=== PATIENT | female | born 1970 | race Caucasian/White ===

== ENCOUNTER 2016-08-08 15:23 | Emergency (ER) | payer BC, OTHER ==
[~2016-08-08] VITALS: Ht 157.5 cm; Wt 102.1 kg
[~2016-08-08 15:23] MED LIST: AMLODIPINE PO; Acetaminophen PO; CEPH-570 PO; HYDR2TAB7 PO; LOSA100T15 PO; METOPROLOL PO; OMEP20TA68 PO
--- NOTE | 2016-08-08 16:50 | NUR ---
Female cryptologic linguist accompanied female patient for (DR BOOTH).
--- NOTE | 2016-08-08 17:19 | NUR ---
Patient discharged to home in stable conditon. Written and verbal after care instructions given. Patient verbalizes understanding of instructions.
[2016-08-08 17:20] VITALS: BP 141/66
== END 2016-08-08 17:24 | disposition home or self-care (01) ==
LOC: ER 15:47
DX: K60.0 Acute anal fissure (principal); I10 Essential (primary) hypertension; K21.9 Gastro-esophageal reflux disease without esophagitis; F10.20 Alcohol dependence, uncomplicated; Z88.6 Allergy status to analgesic agent
CPT/HCPCS: A4663

== ENCOUNTER 2016-09-17 13:10 | Day surgery (SDC) | payer BC, OTHER ==
[~2016-09-17 13:10] MED LIST changes: +IV LACTATED RINGERS SOLUTION 1,000 ML BAG IV ONE; +LIDOCAINE HCL 1% 20 ML VIAL MC ONE; +PROPOFOL 200 MG/20 ML BOTTLE IV ONE
[2016-09-17 13:34] LABS: BASOPHILS # (AUTO) 0.1 K/uL (0.0-8.0); BASOPHILS % (AUTO) 0.7 % (0.0-2.0); EOSINOPHILS # (AUTO) 0.2 K/uL (0.0-0.7); EOSINOPHILS % (AUTO) 2.4 % (0.0-7.0); HEMATOCRIT 38.3 % (37-47); HEMOGLOBIN 13.1 G/DL (12.0-16.0); LYMPHOCYTES # (AUTO) 2.9 K/UL (0.8-4.8); LYMPHOCYTES % (AUTO) 29.4 % (20.5-51.5); MEAN CORPUSCULAR HEMOGLOBIN 30.8 UUG (27.0-31.0); MEAN CORPUSCULAR HGB CONC 34 g/dL (32.0-37.0); MEAN CORPUSCULAR VOLUME 90.2 FL (81.0-99.0); MONOCYTES # (AUTO) 0.4 K/UL (0.1-1.30); MONOCYTES % (AUTO) 3.6 % (0.0-11.0); NEUTROPHILS # (AUTO) 6.4 K/UL (1.8-8.9); NEUTROPHILS % (AUTO) 63.9 % (38.5-71.5); PLATELET COUNT (AUTO) 338 K/UL (150-450); RED BLOOD CELL COUNT(AUTO) 4.24 MIL/UL (4.2-5.4); RED CELL DISTRIBUTION WIDTH 12.3 % (11.5-14.5)
[2016-09-17 13:41] LABS: *BILIRUBIN,URIN NEGATIVE (NEGATIVE); *BLOOD, URINE NEGATIVE (NEGATIVE); *CLARITY,URINE CLEAR (CLEAR); *COLOR,URINE YELLOW (YELLOW); *KETONES,URINE NEGATIVE (NEGATIVE); *PROTEIN,URINE NEGATIVE (NEGATIVE); LEUKOCYTE ESTERASE ,URINE NEGATIVE (NEGATIVE); NITRITE, URINE NEGATIVE (NEGATIVE); PH,URINE 6.5 (5.0-8.0); UGLUCOSE NEGATIVE (NEGATIVE)
[2016-09-17 13:44] LABS: BACTERIA,URINE FEW /HPF (NONE SEEN); RBC,URINE 0-3 /HPF (0-3); SQUAMOUS EPITHELIAL CELL,UR FEW /HPF (NONE SEEN); WBC,URINE 0-3 /HPF (0-3)
[2016-09-17 13:45] LABS: *URINE HCG, QUAL NEGATIVE (NEGATIVE)
[2016-09-17 13:48] LABS: ALBUMIN 3.4 g/dL (3.4-5.0); BILIRUBIN,TOTAL 0.4 mg/dL (0.2-1.0); CREATININE 0.7 mg/dL (0.6-1.3); POTASSIUM 4.3 mmol/L (3.5-5.1); TOTAL PROTEIN, SERUM 7.5 g/dL (6.4-8.2)
[2016-09-17 14:22] LABS: ANISOCYTOSIS 1+; LYMPHOCYTES % (MANUAL) 32 % (20-40); MONOCYTES % (MANUAL) 10 % (2-10); NEUTROPHILS % (MANUAL) 58 % (42-75); PLATELET ESTIMATE ADEQUATE
[2016-09-17] MEDS ORDERED: ONDANSETRON 4 MG/2 ML VIAL ONE (15:58)
== END 2016-09-17 16:15 | disposition home or self-care (01) ==
LOC: DS 13:10
PROVIDERS: ATTEND Internal Medicine Gastroenterology
DX: K29.70 Gastritis, unspecified, without bleeding (principal); K60.2 Anal fissure, unspecified; Z98.84 Bariatric surgery status; I10 Essential (primary) hypertension; E11.9 Type 2 diabetes mellitus without complications; F41.9 Anxiety disorder, unspecified; F32.9 Major depressive disorder, single episode, unspecified; K21.9 Gastro-esophageal reflux disease without esophagitis; G47.33 Obstructive sleep apnea (adult) (pediatric); G62.9 Polyneuropathy, unspecified; E66.01 Morbid (severe) obesity due to excess calories; M19.90 Unspecified osteoarthritis, unspecified site
CPT/HCPCS: 36415; 84703; 85025; 85730; A4217; A4663; J2405; J3490; J7030; J7120

== ENCOUNTER 2017-03-01 07:10 | Emergency (ER) | payer BC, OTHER ==
[~2017-03-01] VITALS: Ht 157.5 cm; Wt 90.7 kg
[~2017-03-01 07:10] MED LIST changes: -IV LACTATED RINGERS SOLUTION 1,000 ML BAG IV ONE; -LIDOCAINE HCL 1% 20 ML VIAL MC ONE; +OMEP20TA5 PO; -OMEP20TA68 PO; -PROPOFOL 200 MG/20 ML BOTTLE IV ONE
[2017-03-01] MEDS ORDERED: OXYC-133 PO (07:31)
[2017-03-01] MEDS ORDERED: GABA-534 PO (07:31)
[2017-03-01] MEDS ORDERED: GABA600T2 PO (07:31)
--- NOTE | 2017-03-01 07:42 | NUR ---
pt is in room #2a. dr Centeno evaluated the pt.
[2017-03-01] MEDS ORDERED: LIDOCAINE HCL 2% 20 ML VIAL TP ONE (07:45)
[2017-03-01] MEDS ORDERED: PROMETHAZINE HCL 25 MG/1 ML VIAL IM ONE (07:45)
[2017-03-01] MEDS ORDERED: HYDROMORPHONE 1 MG/1 ML DISP.SYRIN IM ONE (07:45)
[2017-03-01] MEDS ORDERED: LIDOCAINE HCL 2% 20 ML VIAL ONE (08:01)
[2017-03-01] MEDS ORDERED: ONDANSETRON 4 MG/2 ML VIAL ONE (08:02)
[2017-03-01] MEDS ORDERED: HYDROMORPHONE 2 MG/1 ML DISP.SYRIN ONE (08:02)
[2017-03-01] MEDS ORDERED: PROMETHAZINE HCL 25 MG/1 ML VIAL ONE (08:23)
--- NOTE | 2017-03-01 08:38 | NUR ---
pt was d/c to home. d/c instructions given to the pt.
[2017-03-01 08:39] VITALS: BP 139/85
== END 2017-03-01 08:39 | disposition home or self-care (01) ==
LOC: ER 07:16
DX: L02.212 Cutaneous abscess of back [any part, except buttock and flank] (principal); I10 Essential (primary) hypertension; Z88.6 Allergy status to analgesic agent; Z90.49 Acquired absence of other specified parts of digestive tract; K21.9 Gastro-esophageal reflux disease without esophagitis
CPT/HCPCS: 10060; 96372 ×2; 99284; A4663; J1170; J2405; J2550; J3490

== ENCOUNTER 2017-04-02 14:42 | Outpatient (CLI) | payer BC, OTHER ==
[~2017-04-02 14:42] MED LIST changes: -Acetaminophen PO; -CEPH-570 PO; +GABA-534 PO; +GABA600T2 PO; -HYDR2TAB7 PO; +OXYC-133 PO
[2017-04-02 15:35] LABS: BASOPHILS % (AUTO) 0.6 % (0.0-2.0); EOSINOPHILS # (AUTO) 0.2 K/uL (0.0-0.7); EOSINOPHILS % (AUTO) 2.7 % (0.0-7.0); HEMATOCRIT 36.3 % (37-47); HEMOGLOBIN 12.3 G/DL (12.0-16.0); LYMPHOCYTES # (AUTO) 2.3 K/UL (0.8-4.8); LYMPHOCYTES % (AUTO) 29.3 % (20.5-51.5); MEAN CORPUSCULAR HEMOGLOBIN 30.6 UUG (27.0-31.0); MEAN CORPUSCULAR HGB CONC 34 g/dL (32.0-37.0); MEAN CORPUSCULAR VOLUME 90.5 FL (81.0-99.0); MONOCYTES # (AUTO) 0.5 K/UL (0.1-1.30); MONOCYTES % (AUTO) 6.2 % (0.0-11.0); NEUTROPHILS # (AUTO) 4.8 K/UL (1.8-8.9); NEUTROPHILS % (AUTO) 61.2 % (38.5-71.5); PLATELET COUNT (AUTO) 316 K/UL (150-450); RED BLOOD CELL COUNT(AUTO) 4.01 MIL/UL (4.2-5.4); WHITE BLOOD COUNT (AUTO) 7.8 K/UL (4.0-11.2)
[2017-04-02 15:40] LABS: BILIRUBIN,TOTAL 0.4 mg/dL (0.2-1.0); CREATININE 0.9 mg/dL (0.6-1.3); POTASSIUM 4.2 mmol/L (3.5-5.1); TOTAL PROTEIN, SERUM 7.2 g/dL (6.4-8.2)
[2017-04-02 16:26] LABS: *BILIRUBIN,URIN NEGATIVE (NEGATIVE); *BLOOD, URINE NEGATIVE (NEGATIVE); *CLARITY,URINE CLEAR (CLEAR); *COLOR,URINE YELLOW (YELLOW); *KETONES,URINE NEGATIVE (NEGATIVE); *PROTEIN,URINE NEGATIVE (NEGATIVE); LEUKOCYTE ESTERASE ,URINE NEGATIVE (NEGATIVE); NITRITE, URINE NEGATIVE (NEGATIVE); UGLUCOSE NEGATIVE (NEGATIVE)
[2017-04-02 17:36] LABS: BACTERIA,URINE FEW /HPF (NONE SEEN); RBC,URINE 0-3 /HPF (0-3); SQUAMOUS EPITHELIAL CELL,UR MODERATE /HPF (NONE SEEN); WBC,URINE 0-3 /HPF (0-3)
== END 2017-04-02 23:59 | disposition home or self-care (01) ==
LOC: LAB 14:42
PROVIDERS: ATTEND Legal Medicine
DX: Z01.818 Encounter for other preprocedural examination (principal); M47.894 Other spondylosis, thoracic region
CPT/HCPCS: 36415; 71020; 85025; 85730

== ENCOUNTER 2019-05-07 07:30 | Emergency (ER) | payer BC, OTHER ==
[~2019-05-07] VITALS: Ht 157.5 cm; Wt 131.5 kg
[~2019-05-07 07:30] MED LIST changes: +AMLO10TA7 PO; +CHOL20004 PO; +CYAN10009 PO; +GABA600T12 PO; -GABA600T2 PO; -LOSA100T15 PO; +LOSA100T31 PO; +OMEP20CA15 PO
--- NOTE | 2019-05-07 07:57 | NUR ---
Patient discharged to home in stable conditon. Written and verbal after care instructions given. Patient verbalizes understanding of instructions.
== END 2019-05-07 07:58 | disposition home or self-care (01) ==
LOC: ER 07:30
DX: R60.9 Edema, unspecified (principal); I10 Essential (primary) hypertension; K21.9 Gastro-esophageal reflux disease without esophagitis; Z88.5 Allergy status to narcotic agent; Z79.899 Other long term (current) drug therapy
CPT/HCPCS: A4663

== ENCOUNTER 2019-05-28 11:30 | Day surgery (SDC) | payer BC, OTHER ==
[2019-05-28] MEDS ORDERED: PROPOFOL 200 MG/20 ML BOTTLE IV ONE (11:31)
[2019-05-28] MEDS ORDERED: LIDOCAINE-MPF 2% 5 ML VIAL MC ONE (11:31)
[2019-05-28 12:09] LABS: CREATININE 0.7 mg/dL (0.6-1.3)
[2019-05-28 12:10] LABS: BASOPHILS # (AUTO) 0.1 K/uL (0.0-8.0); BASOPHILS % (AUTO) 1.4 % (0.0-2.0); EOSINOPHILS # (AUTO) 0.3 K/uL (0.0-0.7); EOSINOPHILS % (AUTO) 3.6 % (0.0-7.0); HEMATOCRIT 37.8 % (31.2-41.9); HEMOGLOBIN 12.6 g/dL (10.9-14.3); LYMPHOCYTES # (AUTO) 2.9 K/uL (20.0-40.0); LYMPHOCYTES % (AUTO) 35.3 % (20.5-51.5); MEAN CORPUSCULAR HEMOGLOBIN 30.5 uug (24.7-32.8); MEAN CORPUSCULAR HGB CONC 33 g/dL (32.3-35.6); MEAN CORPUSCULAR VOLUME 91.5 fL (75.5-95.3); MONOCYTES # (AUTO) 0.5 K/uL (2.0-10.0); MONOCYTES % (AUTO) 6.6 % (0.0-11.0); NEUTROPHILS # (AUTO) 4.3 K/uL (1.8-8.9); NEUTROPHILS % (AUTO) 53.1 % (38.5-71.5); PLATELET COUNT (AUTO) 288 K/uL (179-408); RED BLOOD CELL COUNT(AUTO) 4.13 MIL/uL (3.63-4.92); WHITE BLOOD COUNT (AUTO) 8.1 K/uL (3.8-11.8)
[2019-05-28 12:11] LABS: *BLOOD, URINE NEGATIVE (NEGATIVE); *COLOR,URINE DARK YELLOW (YELLOW); *KETONES,URINE NEGATIVE (NEGATIVE); *UROBILINOGEN,URINE 0.2 E.U./dl (NORMAL); LEUKOCYTE ESTERASE ,URINE NEGATIVE (NEGATIVE); NITRITE, URINE NEGATIVE (NEGATIVE); PH,URINE 5.5 (5.0-8.0); UGLUCOSE NEGATIVE (NEGATIVE)
[2019-05-28 12:13] LABS: *BILIRUBIN,URIN 1+ (NEGATIVE); *CLARITY,URINE HAZY (CLEAR)
[2019-05-28 12:21] LABS: BACTERIA,URINE NONE SEEN /HPF (NONE SEEN); SQUAMOUS EPITHELIAL CELL,UR MODERATE /HPF (NONE SEEN); WBC,URINE 0-3 /HPF (0-3)
[2019-05-28 12:22] LABS: MUCUS,URINE FEW /LPF (0-FEW)
== END 2019-05-28 14:26 | disposition home or self-care (01) ==
LOC: DS 11:30
PROVIDERS: ATTEND Physical Medicine & Rehabilitation Pain Medicine
DX: M54.5 Low back pain (principal); M51.16 Intervertebral disc disorders with radiculopathy, lumbar region; I10 Essential (primary) hypertension; E66.9 Obesity, unspecified; M19.90 Unspecified osteoarthritis, unspecified site; Z79.899 Other long term (current) drug therapy; Z88.6 Allergy status to analgesic agent; Z87.440 Personal history of urinary (tract) infections; Z72.89 Other problems related to lifestyle; Z98.890 Other specified postprocedural states; Z82.49 Family history of ischemic heart disease and other diseases of the circulatory system
CPT/HCPCS: 36415; 62323; 72100; 80048; 81000; 81001; 85025; 85730; 93005; J3490

== ENCOUNTER 2019-11-16 09:48 | Outpatient (CLI) | payer BC, OTHER ==
[2019-11-16 10:40] LABS: THYROID STIMULATING HORMONE 1.209 mIU/mL (0.358-3.740)
[2019-11-16 10:49] LABS: BASOPHILS # (AUTO) 0.1 K/uL (0.0-8.0); EOSINOPHILS # (AUTO) 0.2 K/uL (0.0-0.7); HEMOGLOBIN 12.5 g/dL (10.9-14.3); LYMPHOCYTES # (AUTO) 2.9 K/uL (20.0-40.0); LYMPHOCYTES % (AUTO) 34.1 % (20.5-51.5); MEAN CORPUSCULAR HEMOGLOBIN 29.7 uug (24.7-32.8); MEAN CORPUSCULAR HGB CONC 33 g/dL (32.3-35.6); MEAN CORPUSCULAR VOLUME 90.3 fL (75.5-95.3); MONOCYTES # (AUTO) 0.6 K/uL (2.0-10.0); MONOCYTES % (AUTO) 6.9 % (0.0-11.0); NEUTROPHILS # (AUTO) 4.8 K/uL (1.8-8.9); PLATELET COUNT (AUTO) 302 K/uL (179-408); RED BLOOD CELL COUNT(AUTO) 4.21 MIL/uL (3.63-4.92); WHITE BLOOD COUNT (AUTO) 8.6 K/uL (3.8-11.8)
[2019-11-16 10:55] LABS: *BLOOD, URINE NEGATIVE (NEGATIVE); *CLARITY,URINE CLEAR (CLEAR); *COLOR,URINE YELLOW (YELLOW); *KETONES,URINE NEGATIVE (NEGATIVE); LEUKOCYTE ESTERASE ,URINE NEGATIVE (NEGATIVE); NITRITE, URINE NEGATIVE (NEGATIVE); PH,URINE 6.5 (5.0-8.0); UGLUCOSE NEGATIVE (NEGATIVE)
[2019-11-16 10:57] LABS: *BILIRUBIN,URIN 1+ (NEGATIVE)
[2019-11-16 11:43] LABS: BILIRUBIN,TOTAL 0.4 mg/dL (0.2-1.0); POTASSIUM 4.2 mmol/L (3.5-5.1); TOTAL PROTEIN, SERUM 7.6 g/dL (6.4-8.2); URIC ACID 5.7 mg/dL (2.6-6.0)
[2019-11-16 12:04] LABS: BACTERIA,URINE RARE /HPF (NONE SEEN); RBC,URINE 0-3 /HPF (0-3); SQUAMOUS EPITHELIAL CELL,UR FEW /HPF (NONE SEEN); WBC,URINE 0-3 /HPF (0-3)
[2019-11-18 08:16] LABS: *MICROALBUMIN, UR 14.7; CREATININE, URINE 238.7
== END 2019-11-16 23:59 | disposition home or self-care (01) ==
LOC: LAB 09:48
PROVIDERS: ATTEND Legal Medicine
DX: I10 Essential (primary) hypertension (principal); E11.9 Type 2 diabetes mellitus without complications; E03.9 Hypothyroidism, unspecified; D64.9 Anemia, unspecified; E55.9 Vitamin D deficiency, unspecified; E78.5 Hyperlipidemia, unspecified; R53.83 Other fatigue; Z00.00 Encounter for general adult medical examination without abnormal findings
CPT/HCPCS: 36415; 82043; 82306; 82570; 83550; 84443; 84550; 85025

== ENCOUNTER 2019-12-04 07:49 | Emergency (ER) | payer BC, OTHER ==
[~2019-12-04] VITALS: Ht 157.5 cm; Wt 131.5 kg
--- NOTE | 2019-12-04 08:23 | NUR ---
PT WAS EVALUATED BY DR EVANGELISTA. PT WAS D/C'd TO HOME. D/C INSTRUCTIONS GIVEN TO THE PT BY DR EVANGELISTA.
[2019-12-04 08:27] VITALS: BP 139/81
== END 2019-12-04 08:28 | disposition home or self-care (01) ==
LOC: ER 07:49
DX: L03.115 Cellulitis of right lower limb (principal); R60.0 Localized edema; J02.9 Acute pharyngitis, unspecified; Z20.828 Contact with and (suspected) exposure to other viral communicable diseases
CPT/HCPCS: 99283; U0003; A4663

== ENCOUNTER 2020-01-07 02:19 | Emergency (ER) | payer BC, OTHER ==
[~2020-01-07] VITALS: Ht 152.4 cm; Wt 127.0 kg
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
[2020-01-07] MEDS ORDERED: TDAP DIPH,PERTUSS,TET VAC/PF 0.5 ML DISP.SYRIN IM ONE ×2 (03:00→03:03)
--- NOTE | 2020-01-07 03:18 | NUR ---
Patient discharged to home in stable condition. Written and verbal after care instructions given. Patient verbalizes understanding of instructions. Stressed follow up or return to ER for worsening s/s.
== END 2020-01-07 03:21 | disposition home or self-care (01) ==
LOC: ER 02:24
DX: S20.319A Abrasion of unspecified front wall of thorax, initial encounter (principal); W50.4XXA Accidental scratch by another person, initial encounter; Y93.F9 Activity, other caregiving; Y92.239 Unspecified place in hospital as the place of occurrence of the external cause; Y99.0 Civilian activity done for income or pay; I10 Essential (primary) hypertension; K21.9 Gastro-esophageal reflux disease without esophagitis; Z98.84 Bariatric surgery status; Z82.49 Family history of ischemic heart disease and other diseases of the circulatory system; Z79.899 Other long term (current) drug therapy
CPT/HCPCS: 90715; A4663

== ENCOUNTER 2020-06-13 15:25 | Outpatient (CLI) | payer BC, OTHER ==
[~2020-06-13 15:25] MED LIST changes: +AMLO10TA59 PO; -AMLO10TA7 PO; -AMLODIPINE PO; -OMEP20CA15 PO
== END 2020-06-13 23:59 | disposition home or self-care (01) ==
LOC: RAD 15:25
PROVIDERS: ATTEND Legal Medicine
DX: M16.12 Unilateral primary osteoarthritis, left hip (principal)
CPT/HCPCS: 73502

== ENCOUNTER 2020-09-11 06:24 | Outpatient (CLI) | payer BC, OTHER | END 2020-09-11 23:59 | disposition home or self-care (01) | LOC: LAB 06:24 | PROVIDERS: ATTEND Surgery | DX: Z01.812 Encounter for preprocedural laboratory examination (principal); Z20.822 Contact with and (suspected) exposure to COVID-19 ==

== ENCOUNTER 2020-09-13 11:03 | Day surgery (SDC) | payer BC, OTHER ==
[2020-09-13] MEDS ORDERED: PROPOFOL 200 MG/20 ML BOTTLE IV ONE (11:04)
[2020-09-13] MEDS ORDERED: BUPIVACAINE 0.25% 30 ML VIAL ONE (11:24)
[2020-09-13] MEDS ORDERED: IOHEXOL-240 MG , 50 ML VIAL IV ONE (11:26)
[2020-09-13] MEDS ORDERED: TRIAMCINOLONE ACETONIDE 40 MG/1 ML VIAL ONE (11:28)
[2020-09-13] MEDS ORDERED: DEXAMETHASONE SOD PHOSPHATE 10 MG INJ ONE (11:37)
[2020-09-13 11:53] LABS: BASOPHILS # (AUTO) 0.1 K/uL (0.0-8.0); BASOPHILS % (AUTO) 0.8 % (0.0-2.0); EOSINOPHILS # (AUTO) 0.2 K/uL (0.0-0.7); EOSINOPHILS % (AUTO) 2.9 % (0.0-7.0); HEMOGLOBIN 11.5 g/dL (10.9-14.3); LYMPHOCYTES # (AUTO) 2.3 K/uL (20.0-40.0); LYMPHOCYTES % (AUTO) 27.8 % (20.5-51.5); MEAN CORPUSCULAR HGB CONC 34 g/dL (32.3-35.6); MEAN CORPUSCULAR VOLUME 91.6 fL (75.5-95.3); MONOCYTES # (AUTO) 0.6 K/uL (2.0-10.0); NEUTROPHILS % (AUTO) 61.5 % (38.5-71.5); PLATELET COUNT (AUTO) 273 K/uL (179-408); RED BLOOD CELL COUNT(AUTO) 3.71 MIL/uL (3.63-4.92); WHITE BLOOD COUNT (AUTO) 8.2 K/uL (3.8-11.8)
[2020-09-13 11:54] LABS: *BILIRUBIN,URIN NEGATIVE (NEGATIVE); *BLOOD, URINE NEGATIVE (NEGATIVE); *CLARITY,URINE SLIGHTLY CLOUDY (CLEAR); *COLOR,URINE YELLOW (YELLOW); *KETONES,URINE NEGATIVE (NEGATIVE); *UROBILINOGEN,URINE 0.2 E.U./dl (NORMAL); LEUKOCYTE ESTERASE ,URINE NEGATIVE (NEGATIVE); NITRITE, URINE NEGATIVE (NEGATIVE); PH,URINE 6.5 (5.0-8.0); UGLUCOSE NEGATIVE (NEGATIVE)
[2020-09-13 12:03] LABS: CREATININE 0.9 mg/dL (0.6-1.3); POTASSIUM 4.3 mmol/L (3.5-5.1)
[2020-09-13 12:42] LABS: BILIRUBIN,TOTAL 0.3 mg/dL (0.2-1.0); TOTAL PROTEIN, SERUM 7.2 g/dL (6.4-8.2); URIC ACID 5.6 mg/dL (2.6-6.0)
[2020-09-13 15:48] LABS: BACTERIA,URINE NONE SEEN /HPF (NONE SEEN); WBC,URINE 0-3 /HPF (0-3)
[2020-09-13 15:49] LABS: RBC,URINE 0-3 /HPF (0-3); SQUAMOUS EPITHELIAL CELL,UR FEW /HPF (NONE SEEN)
[2020-09-17 17:06] LABS: *VITAMIN D 25-OH VIT D 32 ng/mL (.); *VITAMIN D 25-OH, D2 <1.0 ng/mL (.); *VITAMIN D 25-OH, D3 32 ng/mL (.)
== END 2020-09-13 13:35 | disposition home or self-care (01) ==
LOC: DS 11:03
PROVIDERS: ATTEND Physical Medicine & Rehabilitation Pain Medicine
DX: M51.16 Intervertebral disc disorders with radiculopathy, lumbar region (principal); E66.01 Morbid (severe) obesity due to excess calories; I10 Essential (primary) hypertension; M19.90 Unspecified osteoarthritis, unspecified site; Z87.440 Personal history of urinary (tract) infections; Z79.899 Other long term (current) drug therapy; Z98.890 Other specified postprocedural states; Z72.89 Other problems related to lifestyle; Z88.6 Allergy status to analgesic agent
CPT/HCPCS: 62323; 72100; 80053; 81001; 82607; 82747; 83036; 83550; 84439; 84550; 85014; 85025; 85651; 85730; J3301; J7120; 36415; A4663; J1100; J3490; Q9966

== ENCOUNTER 2020-11-08 09:32 | Outpatient (CLI) | payer BC, OTHER | END 2020-11-08 23:59 | disposition home or self-care (01) | LOC: LAB 09:32 | PROVIDERS: ATTEND Physical Medicine & Rehabilitation Pain Medicine | DX: Z01.812 Encounter for preprocedural laboratory examination (principal); Z20.822 Contact with and (suspected) exposure to COVID-19 ==

== ENCOUNTER 2020-11-10 10:41 | Day surgery (SDC) | payer BC, OTHER ==
[2020-11-10] MEDS ORDERED: LIDOCAINE-MPF 2% 5 ML VIAL IJ ONE (10:42)
[2020-11-10] MEDS ORDERED: PROPOFOL 200 MG/20 ML BOTTLE IV ONE (10:42)
[2020-11-10 11:13] LABS: HEMATOCRIT 35.5 % (31.2-41.9); MEAN CORPUSCULAR HEMOGLOBIN 30.9 uug (24.7-32.8); MEAN CORPUSCULAR VOLUME 91.8 fL (75.5-95.3); PLATELET COUNT (AUTO) 334 K/uL (179-408)
[2020-11-10 11:15] LABS: *BILIRUBIN,URIN NEGATIVE (NEGATIVE); *BLOOD, URINE NEGATIVE (NEGATIVE); *CLARITY,URINE CLEAR (CLEAR); *COLOR,URINE YELLOW (YELLOW); *KETONES,URINE NEGATIVE (NEGATIVE); *UROBILINOGEN,URINE 0.2 E.U./dl (NORMAL); LEUKOCYTE ESTERASE ,URINE 1+ (NEGATIVE); NITRITE, URINE POSITIVE (NEGATIVE); PH,URINE 5.5 (5.0-8.0); UGLUCOSE NEGATIVE (NEGATIVE)
[2020-11-10 11:17] LABS: *URINE HCG, QUAL NEGATIVE (NEGATIVE)
[2020-11-10 11:18] LABS: CREATININE 0.8 mg/dL (0.6-1.3); POTASSIUM 4.4 mmol/L (3.5-5.1)
[2020-11-10] MEDS ORDERED: TRIAMCINOLONE ACETONIDE 40 MG/1 ML VIAL ONE (12:17)
[2020-11-10] MEDS ORDERED: BUPIVACAINE 0.25% 30 ML VIAL ONE (12:18)
[2020-11-10] MEDS ORDERED: IOHEXOL-240 MG , 50 ML VIAL IV ONE (12:18)
[2020-11-10 13:08] LABS: BACTERIA,URINE MODERATE /HPF (NONE SEEN); SQUAMOUS EPITHELIAL CELL,UR FEW /HPF (NONE SEEN); URINE AMORPHOUS URATE FEW /HPF; WBC,URINE 50-80 /HPF (0-3)
[2020-11-10 13:09] LABS: MUCUS,URINE FEW /LPF (0-FEW)
[2020-11-10] MEDS ORDERED: HYDROMORPHONE 1 MG/1 ML DISP.SYRIN ONE (13:37)
[2020-11-10] MEDS ORDERED: KETOROLAC TROMETHAMINE 30 MG INJ ONE (13:40)
[2020-11-10] MEDS ORDERED: HYDROCODONE/APAP 5-325MG TABLET ONE (14:15)
== END 2020-11-10 15:00 | disposition home or self-care (01) ==
LOC: DS 10:41
PROVIDERS: ATTEND Physical Medicine & Rehabilitation Pain Medicine
DX: M47.816 Spondylosis without myelopathy or radiculopathy, lumbar region (principal); M54.5 Low back pain; I70.0 Atherosclerosis of aorta; K21.9 Gastro-esophageal reflux disease without esophagitis; I10 Essential (primary) hypertension; M19.90 Unspecified osteoarthritis, unspecified site; Z79.899 Other long term (current) drug therapy; Z98.890 Other specified postprocedural states; Z88.6 Allergy status to analgesic agent; Z72.89 Other problems related to lifestyle; Z82.49 Family history of ischemic heart disease and other diseases of the circulatory system
CPT/HCPCS: 36415; 70030-TC; 71045; 84703; 85025; 85730; 87077; 87086; 93005; A4663; J1170; J1885; J3301; J3490; J7120; Q9966

== ENCOUNTER 2021-03-07 13:13 | Outpatient (CLI) | payer BC, OTHER ==
[2021-03-07 13:51] LABS: HEMATOCRIT 37.2 % (31.2-41.9); MEAN CORPUSCULAR HEMOGLOBIN 29.6 uug (24.7-32.8); MEAN CORPUSCULAR VOLUME 89.4 fL (75.5-95.3); PLATELET COUNT (AUTO) 306 K/uL (179-408)
[2021-03-07 14:22] LABS: *BILIRUBIN,URIN 1+ (NEGATIVE); *BLOOD, URINE NEGATIVE (NEGATIVE); *CLARITY,URINE SLIGHTLY CLOUDY (CLEAR); *COLOR,URINE YELLOW (YELLOW); *KETONES,URINE TRACE (NEGATIVE); LEUKOCYTE ESTERASE ,URINE NEGATIVE (NEGATIVE); NITRITE, URINE NEGATIVE (NEGATIVE); PH,URINE 5.5 (5.0-8.0); UGLUCOSE NEGATIVE (NEGATIVE)
[2021-03-07 14:52] LABS: THYROID STIMULATING HORMONE 0.873 mIU/mL (0.358-3.740)
[2021-03-07 15:17] LABS: BILIRUBIN,TOTAL 0.3 mg/dL (0.2-1.0); CREATININE 0.8 mg/dL (0.6-1.3); TOTAL PROTEIN, SERUM 7.3 g/dL (6.4-8.2); URIC ACID 4.1 mg/dL (2.6-6.0)
[2021-03-07 15:21] LABS: BACTERIA,URINE FEW /HPF (NONE SEEN); RBC,URINE 0-3 /HPF (0-3); SQUAMOUS EPITHELIAL CELL,UR MODERATE /HPF (NONE SEEN)
== END 2021-03-07 23:59 | disposition home or self-care (01) ==
LOC: LAB 13:13
PROVIDERS: ATTEND Legal Medicine
DX: I10 Essential (primary) hypertension (principal); E11.9 Type 2 diabetes mellitus without complications; E78.5 Hyperlipidemia, unspecified; D64.9 Anemia, unspecified; E55.9 Vitamin D deficiency, unspecified; Z00.00 Encounter for general adult medical examination without abnormal findings
CPT/HCPCS: 36415; 82306; 82746; 83550; 84443; 84550; 85025; 87086

== ENCOUNTER 2021-05-28 06:12 | Outpatient (CLI) | payer BC, OTHER | END 2021-05-28 23:59 | disposition home or self-care (01) | LOC: LAB 06:12 | PROVIDERS: ATTEND Physical Medicine & Rehabilitation Pain Medicine | DX: Z01.812 Encounter for preprocedural laboratory examination (principal); Z20.822 Contact with and (suspected) exposure to COVID-19 ==

== ENCOUNTER 2021-05-30 10:29 | Day surgery (SDC) | payer BC, OTHER ==
[2021-05-30 11:22] LABS: *BILIRUBIN,URIN 2+ (NEGATIVE); *BLOOD, URINE NEGATIVE (NEGATIVE); *CLARITY,URINE CLEAR (CLEAR); *COLOR,URINE YELLOW (YELLOW); *KETONES,URINE 1+ (NEGATIVE); *UROBILINOGEN,URINE 0.2 E.U./dl (NORMAL); LEUKOCYTE ESTERASE ,URINE NEGATIVE (NEGATIVE); NITRITE, URINE NEGATIVE (NEGATIVE); UGLUCOSE NEGATIVE (NEGATIVE)
[2021-05-30 11:25] LABS: HEMATOCRIT 36.5 % (31.2-41.9); MEAN CORPUSCULAR HEMOGLOBIN 30.2 uug (24.7-32.8); MEAN CORPUSCULAR VOLUME 88.5 fL (75.5-95.3); PLATELET COUNT (AUTO) 294 K/uL (179-408)
[2021-05-30] MEDS ORDERED: IOHEXOL-240 MG , 50 ML VIAL IV ONE (11:26)
[2021-05-30] MEDS ORDERED: TRIAMCINOLONE ACETONIDE 40 MG/1 ML VIAL ONE (11:26)
[2021-05-30] MEDS ORDERED: BUPIVACAINE 0.25% 30 ML VIAL ONE (11:26)
[2021-05-30 11:28] LABS: CREATININE 0.8 mg/dL (0.6-1.3); POTASSIUM 3.4 mmol/L (3.5-5.1)
[2021-05-30] MEDS ORDERED: KETOROLAC TROMETHAMINE 30 MG INJ ONE (12:47)
[2021-05-30] MEDS ORDERED: PROPOFOL 200 MG/20 ML BOTTLE ONE ×2 (13:00)
[2021-05-30] MEDS ORDERED: LIDOCAINE-MPF 2% 5 ML VIAL ONE (13:00)
[2021-05-30] MEDS ORDERED: OXYCODONE/APAP 5-325 MG TABLET ONE (13:49)
== END 2021-05-30 14:05 | disposition home or self-care (01) ==
LOC: DS 10:29
PROVIDERS: ATTEND Physical Medicine & Rehabilitation Pain Medicine
DX: M51.16 Intervertebral disc disorders with radiculopathy, lumbar region (principal); I10 Essential (primary) hypertension; K21.9 Gastro-esophageal reflux disease without esophagitis; M19.90 Unspecified osteoarthritis, unspecified site; Z79.899 Other long term (current) drug therapy; Z98.890 Other specified postprocedural states; Z72.89 Other problems related to lifestyle
CPT/HCPCS: 36415; 62323; 71045; 72020; 80048; 81003; 85025; 85730; 93005; J1885; J3301; J3490; J7120; 70030-TC; A4663; Q9966

== ENCOUNTER 2021-07-02 10:36 | Outpatient (CLI) | payer BC, OTHER | END 2021-07-02 23:59 | disposition home or self-care (01) | LOC: XRAY 10:36 | PROVIDERS: ATTEND Physical Medicine & Rehabilitation Pain Medicine | DX: M17.12 Unilateral primary osteoarthritis, left knee (principal); M25.762 Osteophyte, left knee ==

== ENCOUNTER 2021-07-25 13:57 | Outpatient (CLI) | payer BC, OTHER | END 2021-07-25 23:59 | disposition home or self-care (01) | LOC: RAD 13:57 | PROVIDERS: ATTEND Legal Medicine | DX: R06.02 Shortness of breath (principal); M47.814 Spondylosis without myelopathy or radiculopathy, thoracic region; M25.78 Osteophyte, vertebrae | CPT/HCPCS: 71046 ==

== ENCOUNTER 2021-11-16 08:52 | Outpatient (CLI) | payer BC, OTHER | END 2021-11-16 23:59 | disposition home or self-care (01) | LOC: RAD 08:52 | PROVIDERS: ATTEND Radiology Diagnostic Radiology | DX: M25.562 Pain in left knee (principal); M25.561 Pain in right knee; Z96.652 Presence of left artificial knee joint; Z96.651 Presence of right artificial knee joint ==

== ENCOUNTER 2021-11-26 15:23 | Emergency (ER) | payer BC, OTHER ==
[~2021-11-26] VITALS: Ht 157.5 cm; Wt 93.0 kg
[2021-11-26] MEDS ORDERED: ONDANSETRON 4 MG/2 ML VIAL IV ONE (17:00)
[2021-11-26] MEDS ORDERED: PANTOPRAZOLE SODIUM 40 MG VIAL IV ONE (17:00)
[2021-11-26] MEDS ORDERED: MAG HYDROX/AL HYDROX/SIMETH 30 ML LIQUID UDC PO ONE (17:00)
[2021-11-26] MEDS ORDERED: IV NORMAL SALINE 1000 ML BAG IV ONE (17:00)
[2021-11-26 17:16] LABS: HEMATOCRIT 36.1 % (31.2-41.9); MEAN CORPUSCULAR HEMOGLOBIN 29.7 uug (24.7-32.8); MEAN CORPUSCULAR VOLUME 87.6 fL (75.5-95.3); PLATELET COUNT (AUTO) 272 K/uL (179-408)
[2021-11-26 17:33] LABS: *BILIRUBIN,URIN 3+ (NEGATIVE); *BLOOD, URINE NEGATIVE (NEGATIVE); *COLOR,URINE AMBER (YELLOW); *KETONES,URINE 4+ (NEGATIVE); LEUKOCYTE ESTERASE ,URINE NEGATIVE (NEGATIVE); NITRITE, URINE NEGATIVE (NEGATIVE); UGLUCOSE NEGATIVE (NEGATIVE)
[2021-11-26 17:34] LABS: ALANINE AMINOTRANSFERASE 8 U/L (14-59); ALKALINE PHOSPHATASE 69 U/L (50-136); ASPARTATE AMINOTRANSFERASE 6 U/L (15-37); BILIRUBIN,DIRECT 0.2 mg/dL (0.0-0.2); BILIRUBIN,TOTAL 0.6 mg/dL (0.2-1.0); CARBON DIOXIDE 29 mmol/L (21-32); CHLORIDE 102 mmol/L (98-107); CREATININE 0.7 mg/dL (0.6-1.3); GLUCOSE 76 mg/dL (74-106); LIPASE 91 U/L (73-393); POTASSIUM 4.2 mmol/L (3.5-5.1); TOTAL PROTEIN, SERUM 7.2 g/dL (6.4-8.2); UREA NITROGEN, BLOOD 19 mg/dL (7-18)
[2021-11-26 17:35] LABS: *CLARITY,URINE HAZY (CLEAR)
[2021-11-26] MEDS ORDERED: MAG HYDROX/AL HYDROX/SIMETH 30 ML LIQUID UDC ONE (17:37)
[2021-11-26] MEDS ORDERED: ONDANSETRON 4 MG/2 ML VIAL ONE (17:37)
[2021-11-26] MEDS ORDERED: PANTOPRAZOLE SODIUM 40 MG VIAL ONE (17:37)
[2021-11-26 17:41] LABS: BACTERIA,URINE FEW /HPF (NONE SEEN); RBC,URINE 20-50 /HPF (0-3); SQUAMOUS EPITHELIAL CELL,UR FEW /HPF (NONE SEEN)
[2021-11-26] MEDS ORDERED: SWABABLE VALVE TRANSFER SET EA MC ONE (17:47)
[2021-11-26] MEDS ORDERED: IOHEXOL 300MG/ML 100 ML INFUS..BTL ONE (17:47)
[2021-11-26] MEDS ORDERED: IV NORMAL SALINE 250 ML IV ONE (17:47)
--- NOTE | 2021-11-26 19:00 | NUR ---
Patient is a/ox4, NAD noted
--- NOTE | 2021-11-26 19:47 | NUR ---
Patient is able to tolerate fluid and food
[2021-11-26] MEDS ORDERED: OXYC-128 PO (20:13)
[2021-11-26] MEDS ORDERED: PROC10TA29 PO (20:13)
--- NOTE | 2021-11-26 20:24 | NUR ---
Patient discharged to home in stable condition. Written and verbal after care instructions given. Patient verbalizes understanding of instructions. Stressed follow up or return to ER for worsening s/s. Patient is a/ox4, NAD noted. Patient is able to walk with steady gait
[2021-11-26 20:25] VITALS: BP 121/74
== END 2021-11-26 20:31 | disposition home or self-care (01) ==
LOC: ER 15:26
DX: R10.13 Epigastric pain (principal); R11.2 Nausea with vomiting, unspecified; R19.7 Diarrhea, unspecified; R63.0 Anorexia; Z98.84 Bariatric surgery status; Z82.49 Family history of ischemic heart disease and other diseases of the circulatory system; K21.9 Gastro-esophageal reflux disease without esophagitis; E66.9 Obesity, unspecified; Z68.37 Body mass index [BMI] 37.0-37.9, adult; M19.90 Unspecified osteoarthritis, unspecified site; Z88.5 Allergy status to narcotic agent
CPT/HCPCS: 99285; 74177; 96374; 96361; 96375; 80076; 80048; 81001; 83690; 85025; 84484; 36415; 93005; J2405; Q9967; C9113; J7040; A4663

== ENCOUNTER 2022-03-01 07:02 | Outpatient (CLI) | payer BC, OTHER ==
[~2022-03-01 07:02] MED LIST changes: +OXYC-128 PO; +PROC10TA29 PO
[2022-03-01 08:36] LABS: HEMATOCRIT 34.7 % (31.2-41.9); MEAN CORPUSCULAR HEMOGLOBIN 30.5 uug (24.7-32.8); MEAN CORPUSCULAR VOLUME 90.7 fL (75.5-95.3); PLATELET COUNT (AUTO) 289 K/uL (179-408)
[2022-03-01 08:37] LABS: *BILIRUBIN,URIN NEGATIVE (NEGATIVE); *BLOOD, URINE NEGATIVE (NEGATIVE); *CLARITY,URINE SLIGHTLY CLOUDY (CLEAR); *COLOR,URINE YELLOW (YELLOW); *KETONES,URINE TRACE (NEGATIVE); *UROBILINOGEN,URINE 0.2 E.U./dl (NORMAL); LEUKOCYTE ESTERASE ,URINE NEGATIVE (NEGATIVE); NITRITE, URINE POSITIVE (NEGATIVE); PH,URINE 5.5 (5.0-8.0); UGLUCOSE NEGATIVE (NEGATIVE)
[2022-03-01 08:51] LABS: ALANINE AMINOTRANSFERASE 18 U/L (14-59); ALKALINE PHOSPHATASE 68 U/L (50-136); ASPARTATE AMINOTRANSFERASE 10 U/L (15-37); BILIRUBIN,TOTAL 0.3 mg/dL (0.2-1.0); CARBON DIOXIDE 31 mmol/L (21-32); CHLORIDE 105 mmol/L (98-107); CREATININE 0.7 mg/dL (0.6-1.3); GLUCOSE 89 mg/dL (74-106); POTASSIUM 3.5 mmol/L (3.5-5.1); TOTAL PROTEIN, SERUM 7.3 g/dL (6.4-8.2); UREA NITROGEN, BLOOD 18 mg/dL (7-18)
[2022-03-01 08:59] LABS: THYROID STIMULATING HORMONE 1.461 mIU/mL (0.358-3.740)
[2022-03-01 09:06] LABS: IRON, SERUM 79 ug/dL (50-175)
[2022-03-01 09:29] LABS: MUCUS,URINE MANY /LPF (0-FEW)
[2022-03-01 09:30] LABS: CALCIUM OXALATE CRYSTALS,UR MANY /HPF (NONE SEEN)
[2022-03-01 09:31] LABS: BACTERIA,URINE MANY /HPF (NONE SEEN); SQUAMOUS EPITHELIAL CELL,UR FEW /HPF (NONE SEEN)
[2022-03-01 09:33] LABS: RBC,URINE 0-3 /HPF (0-3)
[2022-03-01 09:43] LABS: URIC ACID 3.8 mg/dL (2.6-6.0)
[2022-03-02 05:07] LABS: HEPATITIS B SURFACE AG Negative (Negative)
== END 2022-03-01 23:59 | disposition home or self-care (01) ==
LOC: LAB 07:02
PROVIDERS: ATTEND Legal Medicine
DX: Z00.00 Encounter for general adult medical examination without abnormal findings (principal); E11.9 Type 2 diabetes mellitus without complications; E78.00 Pure hypercholesterolemia, unspecified; R53.1 Weakness; E03.9 Hypothyroidism, unspecified; D64.9 Anemia, unspecified
CPT/HCPCS: 36415; 82746; 83550; 84443; 84550; 85025; 85651; 86038; 86140; 86706; 87077; 87086; 87340

== ENCOUNTER 2022-04-03 08:19 | Outpatient (CLI) | payer BC, OTHER | END 2022-04-03 23:59 | disposition home or self-care (01) | LOC: LAB 08:19 | PROVIDERS: ATTEND Physical Medicine & Rehabilitation Pain Medicine | DX: Z01.812 Encounter for preprocedural laboratory examination (principal); Z20.822 Contact with and (suspected) exposure to COVID-19 ==

== ENCOUNTER 2022-04-05 11:37 | Day surgery (SDC) | payer BC, OTHER ==
[~2022-04-05 11:37] MED LIST changes: +BUPIVACAINE 0.25% 30 ML VIAL ONE; +DEXAMETHASONE SOD PHOSPHATE 10 MG INJ ONE; +IOHEXOL-240 MG , 50 ML VIAL IV ONE; +TRIAMCINOLONE ACETONIDE 40 MG/1 ML VIAL ONE
[2022-04-05] MEDS ORDERED: LIDOCAINE-MPF 2% 5 ML VIAL IJ ONE (11:38)
[2022-04-05] MEDS ORDERED: PROPOFOL 200 MG/20 ML BOTTLE IV ONE (11:38)
[2022-04-05 11:49] LABS: HEMATOCRIT 33.8 % (31.2-41.9); MEAN CORPUSCULAR HEMOGLOBIN 30.5 uug (24.7-32.8); MEAN CORPUSCULAR VOLUME 89.5 fL (75.5-95.3); PLATELET COUNT (AUTO) 315 K/uL (179-408)
[2022-04-05 11:59] LABS: CREATININE 0.6 mg/dL (0.6-1.3); POTASSIUM 3.9 mmol/L (3.5-5.1)
[2022-04-05 12:12] LABS: *BILIRUBIN,URIN NEGATIVE (NEGATIVE); *BLOOD, URINE NEGATIVE (NEGATIVE); *CLARITY,URINE CLEAR (CLEAR); *COLOR,URINE YELLOW (YELLOW); *KETONES,URINE TRACE (NEGATIVE); LEUKOCYTE ESTERASE ,URINE NEGATIVE (NEGATIVE); NITRITE, URINE NEGATIVE (NEGATIVE); UGLUCOSE NEGATIVE (NEGATIVE)
[2022-04-05] MEDS ORDERED: NORMAL SALINE 10 ML VIAL ONE (12:47)
== END 2022-04-05 14:15 | disposition home or self-care (01) ==
LOC: DS 11:37
PROVIDERS: ATTEND Physical Medicine & Rehabilitation Pain Medicine
DX: M51.36 Other intervertebral disc degeneration, lumbar region (principal); I10 Essential (primary) hypertension; M19.90 Unspecified osteoarthritis, unspecified site; Z87.440 Personal history of urinary (tract) infections; Z79.899 Other long term (current) drug therapy; Z98.890 Other specified postprocedural states; Z88.6 Allergy status to analgesic agent
CPT/HCPCS: 62323; 71045; 80048; 81003; 85025; 85730; 36415; 74018; 93005; J3490 ×2; J1100; J3301; J7120; A4663; Q9966

== ENCOUNTER 2022-07-10 07:09 | Outpatient (CLI) | payer BC, OTHER ==
[~2022-07-10 07:09] MED LIST changes: -BUPIVACAINE 0.25% 30 ML VIAL ONE; -DEXAMETHASONE SOD PHOSPHATE 10 MG INJ ONE; -IOHEXOL-240 MG , 50 ML VIAL IV ONE; -TRIAMCINOLONE ACETONIDE 40 MG/1 ML VIAL ONE
== END 2022-07-10 23:59 | disposition home or self-care (01) ==
LOC: LAB 07:09
PROVIDERS: ATTEND Physical Medicine & Rehabilitation Pain Medicine
DX: Z01.812 Encounter for preprocedural laboratory examination (principal); Z20.822 Contact with and (suspected) exposure to COVID-19

== ENCOUNTER 2022-07-12 11:03 | Day surgery (SDC) | payer BC, OTHER ==
[~2022-07-12 11:03] MED LIST changes: +BUPIVACAINE 0.25% 30 ML VIAL ONE; +DEXAMETHASONE SOD PHOSPHATE 10 MG INJ ONE; +IOHEXOL-240 MG , 50 ML VIAL IV ONE; +LIDOCAINE HCL 1% 20 ML VIAL ONE; +TRIAMCINOLONE ACETONIDE 40 MG/1 ML VIAL ONE
[2022-07-12] MEDS ORDERED: PROPOFOL 200 MG/20 ML BOTTLE IV ONE (11:04)
[2022-07-12] MEDS ORDERED: LIDOCAINE-MPF 2% 5 ML VIAL IJ ONE (11:04)
[2022-07-12 11:43] LABS: HEMATOCRIT 34.9 % (31.2-41.9); MEAN CORPUSCULAR HEMOGLOBIN 30.2 uug (24.7-32.8); MEAN CORPUSCULAR VOLUME 90.8 fL (75.5-95.3); PLATELET COUNT (AUTO) 319 K/uL (179-408)
[2022-07-12 11:44] LABS: *BILIRUBIN,URIN NEGATIVE (NEGATIVE); *BLOOD, URINE NEGATIVE (NEGATIVE); *CLARITY,URINE CLEAR (CLEAR); *COLOR,URINE YELLOW (YELLOW); *KETONES,URINE NEGATIVE (NEGATIVE); LEUKOCYTE ESTERASE ,URINE NEGATIVE (NEGATIVE); NITRITE, URINE NEGATIVE (NEGATIVE); PH,URINE 7.5 (5.0-8.0); UGLUCOSE NEGATIVE (NEGATIVE)
[2022-07-12 11:54] LABS: CREATININE 0.5 mg/dL (0.6-1.3)
[2022-07-12] MEDS ORDERED: NORMAL SALINE 10 ML VIAL ONE (12:51)
[2022-07-12] MEDS ORDERED: FENTANYL CITRATE 100 MCG/2 ML AMPUL ONE (13:16)
[2022-07-12] MEDS ORDERED: OXYCODONE/APAP 5-325 MG TABLET ONE (13:44)
== END 2022-07-12 14:24 | disposition home or self-care (01) ==
LOC: DS 11:03
PROVIDERS: ATTEND Physical Medicine & Rehabilitation Pain Medicine
DX: M51.16 Intervertebral disc disorders with radiculopathy, lumbar region (principal); I10 Essential (primary) hypertension; M19.90 Unspecified osteoarthritis, unspecified site; E11.9 Type 2 diabetes mellitus without complications; Z79.899 Other long term (current) drug therapy; Z98.890 Other specified postprocedural states; Z88.6 Allergy status to analgesic agent
CPT/HCPCS: 62323; 80048; 81003; 85025; 85730; 36415; 74018; 93005; J3490 ×2; J3301; J3010; J7120; A4663; J1100; Q9966

== ENCOUNTER 2024-10-15 02:46 | Inpatient (IN) | payer BC, OTHER ==
[~2024-10-15] VITALS: Ht 157.5 cm; Wt 108.9 kg
[~2024-10-15 02:46] MED LIST changes: -BUPIVACAINE 0.25% 30 ML VIAL ONE; -DEXAMETHASONE SOD PHOSPHATE 10 MG INJ ONE; -IOHEXOL-240 MG , 50 ML VIAL IV ONE; -LIDOCAINE HCL 1% 20 ML VIAL ONE; -TRIAMCINOLONE ACETONIDE 40 MG/1 ML VIAL ONE
[2024-10-15] MEDS ORDERED: ONDANSETRON ODT 4 MG TAB.RAPDIS ONE (03:21)
[2024-10-15] MEDS ORDERED: HYDROMORPHONE 2 MG/1 ML DISP.SYRIN ONE ×2 (03:22→11:01)
[2024-10-15] MEDS: HYDROMORPHONE 1 MG/1 ML DISP.SYRIN IM ONE (03:31)
[2024-10-15] MEDS: ONDANSETRON ODT 4 MG TAB.RAPDIS SL ONE (03:31)
[2024-10-15] MEDS ORDERED: HYDROMORPHONE 1 MG/1 ML DISP.SYRIN ONE ×2 (04:31→07:17)
[2024-10-15] MEDS ORDERED: LORAZEPAM 2 MG/1 ML VIAL ONE (04:32)
[2024-10-15] MEDS: LORAZEPAM 2 MG/1 ML VIAL IV ONE (04:35)
[2024-10-15] MEDS: HYDROMORPHONE 1 MG/1 ML DISP.SYRIN IV ONE ×2 (04:35→07:53)
[2024-10-15 04:42] LABS: BASOPHILS # (AUTO) 0.1 K/UL (0.0-0.2); BASOPHILS % (AUTO) 0.8 % (0.0-2.0); EOSINOPHILS # (AUTO) 0.1 K/uL (0.0-0.7); EOSINOPHILS % (AUTO) 0.9 % (0.0-7.0); HEMATOCRIT 33.9 % (31.2-41.9); HEMOGLOBIN 11.5 g/dL (10.9-14.3); LYMPHOCYTES # (AUTO) 2.3 K/uL (0.8-4.8); LYMPHOCYTES % (AUTO) 16.6 % (20.5-51.5); MEAN CORPUSCULAR HEMOGLOBIN 29.7 uug (24.7-32.8); MEAN CORPUSCULAR HGB CONC 34 g/dL (32.3-35.6); MEAN CORPUSCULAR VOLUME 87.8 fL (75.5-95.3); MONOCYTES # (AUTO) 0.6 K/uL (0.1-1.30); MONOCYTES % (AUTO) 4.4 % (0.0-11.0); NEUTROPHILS # (AUTO) 10.8 K/uL (1.8-8.9); NEUTROPHILS % (AUTO) 77.3 % (38.5-71.5); PLATELET COUNT (AUTO) 270 K/uL (179-408); RED BLOOD CELL COUNT(AUTO) 3.87 MIL/uL (3.63-4.92); RED CELL DISTRIBUTION WIDTH 13.6 % (12.3-17.7)
[2024-10-15 04:46] LABS: DIFFERENTIAL COMMENT 1
[2024-10-15 05:13] LABS: CALCIUM 8.5 mg/dL (8.5-10.1); CREATININE 0.6 mg/dL (0.6-1.3); POTASSIUM 3.8 mmol/L (3.5-5.1)
[2024-10-15 05:18] LABS: ALBUMIN 3.5 g/dL (3.4-5.0); BILIRUBIN,DIRECT 0.2 mg/dL (0.0-0.2); BILIRUBIN,TOTAL 0.3 mg/dL (0.2-1.0)
[2024-10-15] MEDS ORDERED: KETOROLAC TROMETHAMINE 30 MG INJ ONE (07:17)
[2024-10-15] MEDS: KETOROLAC TROMETHAMINE 30 MG INJ IVP ONE (07:53)
[2024-10-15] MEDS ORDERED: AMLODIPINE 10 MG TABLET PO SCH (10:54)
[2024-10-15 11:00] VITALS: BP 125/62; TEMP 98.8; O2SAT 99
[2024-10-15] MEDS ORDERED: OXYCODONE/APAP 5-325 MG TABLET PO PRN (11:00)
[2024-10-15] MEDS ORDERED: HYDROMORPHONE 1 MG/1 ML DISP.SYRIN IV PRN (11:00)
[2024-10-15] MEDS: HYDROMORPHONE 2 MG/1 ML DISP.SYRIN IV PRN ×2 (11:02→15:12)
[2024-10-15] MEDS ORDERED: HYDR25TA86 GT (11:17)
[2024-10-15] MEDS ORDERED: ZOLP10TA2 PO (11:18)
[2024-10-15] MEDS ORDERED: BACL10TA PO (11:18)
[2024-10-15] MEDS ORDERED: ROSU10TA29 PO (11:25)
[2024-10-15] MEDS ORDERED: Medication Not On Formulary EA (Zolpidem Tartrate (Ambien) 10 MG) PO PRN (12:45)
[2024-10-15 13:57] LABS: *BILIRUBIN,URIN NEGATIVE (NEGATIVE); *BLOOD, URINE NEGATIVE (NEGATIVE); *CLARITY,URINE CLEAR (CLEAR); *COLOR,URINE YELLOW (YELLOW); *KETONES,URINE NEGATIVE (NEGATIVE); *PROTEIN,URINE NEGATIVE (NEGATIVE); *UROBILINOGEN,URINE 0.2 E.U./dl (NORMAL); LEUKOCYTE ESTERASE ,URINE NEGATIVE (NEGATIVE); NITRITE, URINE POSITIVE (NEGATIVE); UGLUCOSE NEGATIVE (NEGATIVE)
[2024-10-15 13:58] LABS: BACTERIA,URINE MODERATE /HPF (NONE SEEN); SQUAMOUS EPITHELIAL CELL,UR MODERATE /HPF (NONE SEEN); WBC,URINE 0-3 /HPF (0-3)
[2024-10-15] MEDS: CEFTRIAXONE 2 G in IV DEXTROSE 5% 100 ML IV SCH (15:54)
[2024-10-15 16:00] VITALS: O2SAT 99
[2024-10-15] MEDS ORDERED: CEFTRIAXONE 1 G in IV DEXTROSE 5% 50 ML IV SCH (16:00)
[2024-10-15] MEDS: GABAPENTIN 300 MG CAPSULE PO SCH ×2 (16:01→21:01)
[2024-10-15] MEDS: BACLOFEN 10 MG TABLET PO SCH (16:01)
[2024-10-15 16:04] VITALS: BP 109/55; TEMP 97.7; O2SAT 99
[2024-10-15] MEDS: METOPROLOL TARTRATE 50 MG TABLET PO SCH (16:49)
[2024-10-15] MEDS: hydrALAZINE HCL 25 MG TABLET GT SCH (17:53)
[2024-10-15 19:15] VITALS: BP 128/61; TEMP 99.4; O2SAT 93
[2024-10-15] MEDS ORDERED: Medication Not On Formulary EA (Gabapentin 600 MG) PO SCH (21:00)
[2024-10-15] MEDS: ATORVASTATIN 20 MG TABLET PO SCH (21:01)
[2024-10-15] MEDS: IV D5/ 0.9% NACL 1,000 ML IV PRN (21:12)
[2024-10-15] MEDS: OXYCODONE/APAP 5-325 MG TABLET PO PRN (22:11)
[2024-10-15] MEDS: ZOLPIDEM 5 MG TABLET PO PRN (23:42)
[2024-10-16 05:43] VITALS: BP 139/72; TEMP 98.5; O2SAT 96
[2024-10-16 07:10] LABS: BASOPHILS % (AUTO) 0.5 % (0.0-2.0); EOSINOPHILS # (AUTO) 0.1 K/uL (0.0-0.7); EOSINOPHILS % (AUTO) 0.9 % (0.0-7.0); HEMATOCRIT 31.6 % (31.2-41.9); HEMOGLOBIN 10.7 g/dL (10.9-14.3); LYMPHOCYTES # (AUTO) 2.6 K/uL (0.8-4.8); LYMPHOCYTES % (AUTO) 30.1 % (20.5-51.5); MEAN CORPUSCULAR HEMOGLOBIN 30.3 uug (24.7-32.8); MEAN CORPUSCULAR HGB CONC 34 g/dL (32.3-35.6); MEAN CORPUSCULAR VOLUME 89.1 fL (75.5-95.3); MONOCYTES # (AUTO) 0.9 K/uL (0.1-1.30); MONOCYTES % (AUTO) 9.8 % (0.0-11.0); NEUTROPHILS # (AUTO) 5.1 K/uL (1.8-8.9); NEUTROPHILS % (AUTO) 58.7 % (38.5-71.5); PLATELET COUNT (AUTO) 229 K/uL (179-408); RED BLOOD CELL COUNT(AUTO) 3.55 MIL/uL (3.63-4.92); RED CELL DISTRIBUTION WIDTH 13.9 % (12.3-17.7); WHITE BLOOD COUNT (AUTO) 8.7 K/uL (3.8-11.8)
[2024-10-16 07:14] LABS: DIFFERENTIAL COMMENT 1
[2024-10-16 07:18] LABS: CALCIUM 8.5 mg/dL (8.5-10.1); CREATININE 0.5 mg/dL (0.6-1.3); POTASSIUM 3.5 mmol/L (3.5-5.1)
[2024-10-16 08:30] VITALS: O2SAT 97
[2024-10-16] MEDS: HYDROMORPHONE 2 MG/1 ML DISP.SYRIN IV ONE (08:57)
[2024-10-16] MEDS ORDERED: AMLODIPINE 10 MG TABLET PO SCH (09:00)
[2024-10-16] MEDS ORDERED: Medication Not On Formulary EA (Cholecalciferol (Vitamin D3) (Vitamin D CAPSULE) 2,000 U PO SCH (09:00)
[2024-10-16] MEDS ORDERED: CYANOCOBALAMIN 1,000 MCG TABLET PO SCH (09:00)
[2024-10-16] MEDS ORDERED: Medication Not On Formulary EA (Omeprazole 20 MG) PO SCH (09:00)
[2024-10-16] MEDS ORDERED: Medication Not On Formulary EA (Losartan Potassium 100 MG) PO SCH (09:00)
[2024-10-16 10:53] VITALS: BP 121/58; TEMP 99; O2SAT 94
[2024-10-16] MEDS ORDERED: VANCOMYCIN 1000 MG VIAL ONE (10:57)
[2024-10-16] MEDS ORDERED: PROPOFOL 200 MG/20 ML BOTTLE ONE (11:00)
[2024-10-16] MEDS ORDERED: FENTANYL CITRATE 100 MCG/2 ML AMPUL ONE (11:05)
[2024-10-16] MEDS ORDERED: MIDAZOLAM HCL 2 MG/2 ML VIAL ONE (11:05)
[2024-10-16] MEDS ORDERED: SUCCINYLCHOLINE CHLORIDE 200 MG/10 ML VIAL ONE (11:23)
[2024-10-16] MEDS ORDERED: HYDROMORPHONE 2 MG/1 ML DISP.SYRIN ONE (12:27)
[2024-10-16 16:17] VITALS: BP 135/63; TEMP 98.5; O2SAT 97
[2024-10-16] MEDS: POTASSIUM CHLORIDE 20 MEQ in IV D5 1/2 NS 1000 ML 1,000 ML IV PRN (17:10)
[2024-10-16] MEDS: ACETAMINOPHEN 325 MG TABLET PO PRN (19:09)
[2024-10-16 19:15] VITALS: BP 119/62; TEMP 99.3; O2SAT 93
[2024-10-17 04:58] VITALS: BP 147/70; TEMP 99.4; O2SAT 92
[2024-10-17 07:19] LABS: BASOPHILS % (AUTO) 0.5 % (0.0-2.0); EOSINOPHILS # (AUTO) 0.1 K/uL (0.0-0.7); EOSINOPHILS % (AUTO) 1.1 % (0.0-7.0); HEMATOCRIT 29.8 % (31.2-41.9); HEMOGLOBIN 10.1 g/dL (10.9-14.3); LYMPHOCYTES # (AUTO) 2.2 K/uL (0.8-4.8); LYMPHOCYTES % (AUTO) 25.3 % (20.5-51.5); MEAN CORPUSCULAR HEMOGLOBIN 30.2 uug (24.7-32.8); MEAN CORPUSCULAR HGB CONC 34 g/dL (32.3-35.6); MEAN CORPUSCULAR VOLUME 88.7 fL (75.5-95.3); MONOCYTES # (AUTO) 0.8 K/uL (0.1-1.30); NEUTROPHILS # (AUTO) 5.6 K/uL (1.8-8.9); NEUTROPHILS % (AUTO) 64.1 % (38.5-71.5); PLATELET COUNT (AUTO) 214 K/uL (179-408); RED BLOOD CELL COUNT(AUTO) 3.35 MIL/uL (3.63-4.92); RED CELL DISTRIBUTION WIDTH 13.8 % (12.3-17.7); WHITE BLOOD COUNT (AUTO) 8.7 K/uL (3.8-11.8)
[2024-10-17 07:27] LABS: CALCIUM 8.4 mg/dL (8.5-10.1); CREATININE 0.5 mg/dL (0.6-1.3); POTASSIUM 3.6 mmol/L (3.5-5.1)
[2024-10-17 07:36] LABS: DIFFERENTIAL COMMENT 1
[2024-10-17 08:00] VITALS: TEMP 102.8
[2024-10-17 09:00] VITALS: TEMP 101.3
[2024-10-17] MEDS: HYDROMORPHONE 2 MG/1 ML DISP.SYRIN IV ONE (09:35)
[2024-10-17] MEDS ORDERED: NALOXONE HCL 0.4 MG/ML AMPUL IV PRN (11:45)
[2024-10-17 12:00] VITALS: TEMP 99.6
[2024-10-17] MEDS: OXYCODONE HCL 10 MG TAB.SR.12H PO SCH (13:07)
[2024-10-17 16:00] VITALS: BP 116/60; TEMP 98.2; O2SAT 94
[2024-10-17 19:00] VITALS: BP 123/71; TEMP 99.2; O2SAT 98
[2024-10-18 05:00] VITALS: BP 116/57; TEMP 99.2; O2SAT 95
[2024-10-18] MEDS ORDERED: NALOXONE HCL 0.4 MG/ML AMPUL IV PRN (11:15)
[2024-10-18] MEDS ORDERED: OXYCODONE/APAP 5-325 MG TABLET PO PRN (11:15)
[2024-10-18 11:31] VITALS: BP 115/62; TEMP 98.2; O2SAT 100
[2024-10-18 15:43] VITALS: BP 100/55; TEMP 101.2; O2SAT 96
[2024-10-18 19:45] VITALS: BP 106/59; TEMP 98.9; O2SAT 95
[2024-10-18] MEDS: OXYCODONE HCL 40 MG TAB.SR.12H PO SCH (21:00)
[2024-10-19 05:06] VITALS: BP 111/57; TEMP 97.2; O2SAT 91
[2024-10-19 08:26] VITALS: BP 108/63; TEMP 100.7; O2SAT 94
[2024-10-19 11:08] VITALS: BP 100/67; TEMP 98.8; O2SAT 94
[2024-10-19 15:38] VITALS: BP 142/74; TEMP 98.1; O2SAT 96
[2024-10-19 19:00] VITALS: BP 123/54; TEMP 98.3; O2SAT 97
[2024-10-20 06:00] VITALS: BP 122/61; TEMP 97.8; O2SAT 96
[2024-10-20 06:51] LABS: BASOPHILS % (AUTO) 0.8 % (0.0-2.0); EOSINOPHILS # (AUTO) 0.2 K/uL (0.0-0.7); EOSINOPHILS % (AUTO) 3.9 % (0.0-7.0); HEMATOCRIT 25.2 % (31.2-41.9); HEMOGLOBIN 8.7 g/dL (10.9-14.3); LYMPHOCYTES % (AUTO) 33.3 % (20.5-51.5); MEAN CORPUSCULAR HEMOGLOBIN 31.2 uug (24.7-32.8); MEAN CORPUSCULAR HGB CONC 35 g/dL (32.3-35.6); MEAN CORPUSCULAR VOLUME 89.8 fL (75.5-95.3); MONOCYTES # (AUTO) 0.6 K/uL (0.1-1.30); MONOCYTES % (AUTO) 9.2 % (0.0-11.0); NEUTROPHILS # (AUTO) 3.2 K/uL (1.8-8.9); NEUTROPHILS % (AUTO) 52.8 % (38.5-71.5); PLATELET COUNT (AUTO) 218 K/uL (179-408); RED CELL DISTRIBUTION WIDTH 13.4 % (12.3-17.7); WHITE BLOOD COUNT (AUTO) 6.1 K/uL (3.8-11.8)
[2024-10-20 06:59] LABS: CALCIUM 8.8 mg/dL (8.5-10.1); CREATININE 0.5 mg/dL (0.6-1.3); PHOSPHOROUS 4.3 mg/dL (2.5-4.9); POTASSIUM 4.1 mmol/L (3.5-5.1)
[2024-10-20 07:09] LABS: DIFFERENTIAL COMMENT 1
[2024-10-20 09:41] VITALS: BP 122/69; TEMP 97.8; O2SAT 98
[2024-10-20] MEDS ORDERED: METO50TA16 PO (10:42)
[2024-10-20 11:05] VITALS: BP 116/54; TEMP 98.8; O2SAT 97
== END 2024-10-20 16:20 | disposition home or self-care (01) | DRG 493 ==
LOC: ER 02:52 → MEDSURG3 10:26
PROVIDERS: ADMIT Nurse Practitioner Acute Care; ATTEND Nurse Practitioner Acute Care
PROC: 0PSD04Z Reposition Left Humeral Head with Internal Fixation Device, Open Approach (ICD-10-PCS; principal; 2024-10-15)
PROC: 05HD33Z Insertion of Infusion Device into Right Cephalic Vein, Percutaneous Approach (ICD-10-PCS; 2024-10-16)
DX: S42.292A Other displaced fracture of upper end of left humerus, initial encounter for closed fracture (principal); E87.1 Hypo-osmolality and hyponatremia; N39.0 Urinary tract infection, site not specified; Z68.41 Body mass index [BMI] 40.0-44.9, adult; W01.0XXA Fall on same level from slipping, tripping and stumbling without subsequent striking against object, initial encounter; Y92.030 Kitchen in apartment as the place of occurrence of the external cause; E66.9 Obesity, unspecified; G89.4 Chronic pain syndrome; E78.5 Hyperlipidemia, unspecified; Z98.84 Bariatric surgery status; Z96.653 Presence of artificial knee joint, bilateral; Z79.891 Long term (current) use of opiate analgesic; Z90.49 Acquired absence of other specified parts of digestive tract; Z82.49 Family history of ischemic heart disease and other diseases of the circulatory system; R50.82 Postprocedural fever; Z79.899 Other long term (current) drug therapy; G62.9 Polyneuropathy, unspecified; M15.9 Polyosteoarthritis, unspecified; I89.0 Lymphedema, not elsewhere classified; I10 Essential (primary) hypertension; K21.9 Gastro-esophageal reflux disease without esophagitis
CPT/HCPCS: 36415; 71045; 73020; 73060; 73110; 73130; 73200; 83735; 84100; 85025; 85730; 87040; 87086; A4649; A4663; C1713; G0378; J0330; J0690; J0696; J1171; J1885; J2060; J2250; J2405; J2765; J3010; J3370; J3480; J3490; J7042; Q0162